=== PATIENT | female | born 1940 | race Caucasian/White ===

== ENCOUNTER 2025-06-10 18:43 | Inpatient (IN) ==
[2025-06-10] MEDS: ALBUTEROL 0.083% NEBU SOLN 3 ML VIAL ONE (19:27)
[2025-06-10 19:54] LABS: Alanine Aminotransferase 7.0 U/L (7-52); Albumin Globulin Ratio 1.0 (0.9-2); Alkaline Phosphatase 107.0 U/L (34-104); Anion Gap 9.0 (3-11); Bilirubin,Total 0.5 mg/dl (0.2-1.0); Blood Urea Nitrogen 29.0 mg/dl (6-23); Calcium 8.9 mg/dl (8.6-10.3); Carbon Dioxide 30.0 mmol/L (21-32); Chloride 105.0 mmol/L (98-107); Creatinine Clr Calc Pharmacy 36.5 ml/min; Globulin 2.9 gm/dl (2.5-4.0); Glucose 117.0 mg/dl (70-99(Fasting)); Potassium 4.3 mmol/L (3.5-5.1); Sodium 144.0 mmol/L (136-145); Total Protein 5.8 gm/dl (6.0-8.3)
[2025-06-10 20:01] LABS: Hematocrit (blood only) 41.5 % (37.0-47.0); Hemoglobin 12.2 g/dl (12.0-16.0); Mean Corpuscular Hemoglobin 29.3 pg (25.0-34.0); Mean Corpuscular Volume 99.8 fL (80.0-100.0); Platelet Count 395 K/uL (130-400); RDW Standard Deviation 57.2 fL (36.4-46.3); Red Blood Count 4.16 M/uL (4.20-5.40); White Blood Count 17.95 K/ul (4.8-10.8)
[2025-06-10 20:01] LABS: Chlamydia pneumoniae PCR Not Detected (NotDetected); Coronavirus 229E PCR Not Detected (NotDetected); Coronavirus CoV-2 (COVID19)PCR Not Detected (NotDetected); Coronavirus HKU1 PCR Not Detected (NotDetected); Coronavirus NL63 PCR Not Detected (NotDetected); Coronavirus OC43PCR Not Detected (NotDetected); Human Metapneumovirus PCR Not Detected (NotDetected); Parainfluenza Virus 1 PCR Not Detected (NotDetected); Parainfluenza Virus 2 PCR Not Detected (NotDetected); Parainfluenza Virus 3 PCR Not Detected (NotDetected); Parainfluenza Virus 4 PCR Not Detected (NotDetected); Respiratory Syncytial VirusPCR Not Detected (NotDetected); Rhinovirus/Enterovirus PCR DETECTED (NotDetected)
--- NOTE | 2025-06-10 20:11 | XRay Report ---
Exam: Chest one view portable. Reason for exam: Pain Previous studies: None FINDINGS: Portable view of the chest shows normal cardiac size. Lungs show hyperaeration and flattening the diaphragms consistent with emphysematous COPD. Otherwise no active infiltrate, collapse or edema is noted. IMPRESSION: Emphysematous COPD. Electronically signed by Deyvi Gann 06-10-2025 8:10 PM
--- NOTE | 2025-06-10 20:22 | Emergency Department Note ---
Impression & Plan Acute respiratory failure with hypoxia, Rhinovirus infection, COPD (chronic obstructive pulmonary disease) ED Provider Note NAME: SALLY MAYERS AGE: 84 SEX: F : 1940 ARRIVES VIA: Ambulance INFORMANT: Patient, ED PROVIDER(S): Phylicia Hutchison MD CHIEF COMPLAINT: Respiratory distress HPI: This is an 84-year-old female present for respiratory distress. Patient been having difficulty breathing all day. She went unresponsive at the nursing facility. She was awake but not very responsive. She responded painful stimuli. Currently she is tachypneic, shallow respirations, does not respond to voice. Patient is a full code, staff at [facility] called who states this ROS: See above HPI for pertinent positives & negatives. A total of 10 systems reviewed and were otherwise negative. PAST MEDICAL HISTORY: See Below PAST SURGICAL HISTORY: See Below FAMILY HISTORY: See Below SOCIAL HISTORY: See Below HOME MEDICATIONS: See Below ALLERGIES: See Below VITALS: See Below PHYSICAL EXAMINATION: General: Thin, frail, cachectic Head: Normocephalic Eyes: Normal inspection, extraocular muscles intact Ear, nose, throat: Normal external exam Neck: Normal range of motion Respiratory: Poor air movement Cardiovascular: Regular rate/rhythm, no murmur GI: Soft Extremities: nontender, moves all extremities Neuro: No focal deficits, awake, alert Skin: Warm, dry, and intact MEDICAL DECISION MAKING: This is a an 84-year-old female seen for respiratory distress. Patient is currently not moving much air. Concern for COPD exacerbation, URI, pneumonia. - Placed patient on BiPAP with albuterol treatment. She despite this but is fairly amenable -Blood work reveals leukocytosis to almost 18. Troponin is elevated at 40 - Patient is positive for rhino/enterovirus. Explained her current respiratory distress. Patient and Solu-Medrol as well. -Patient required admission for COPD extubation secondary to URI. Differential diagnosis: Pneumonia, URI, COPD Independent History obtained from: EMS Diagnostics interpreted by me: ECG: ECG independently interpreted by me with normal sinus rhythm, rate of 88, normal VT, normal QRS, normal QTc, no ST segment elevations consistent with STEMI criteria Cardiac Monitoring: An order was placed for continuous cardiac monitoring. The monitor shows a rate of 88 with sinus rhythm. Critical Care Note: I have personally spent 34 minutes of critical care time in the direct management of this patient. This includes bedside care, interpretation of diagnostic studies, and testing, discussion with consultants, patient, and family members, and other required patient management activities. This 34 minutes is in excess of all separately billable procedures. Past Med/Surg History Problem List (Updated 06/10/25 @ 23:30 by Phylicia Hutchison MD) Sepsis Acute metabolic encephalopathy COPD (chronic obstructive pulmonary disease) (Acute) Rhinovirus infection (Acute) Acute respiratory failure with hypoxia (Acute) Social History Smoking Status: Unknown if ever smoked Preferred Language: Korean Allergies Allergies Allergy/AdvReac Type Severity Reaction Status Date / Time No Known Allergies Allergy Verified 06/10/25 19:14 Home Meds Home Medications Medication Instructions Recorded Confirmed acetaminophen 325 mg tablet 650 mg PO Q4H PRN PAIN/FEVER >101.0 06/10/25 06/10/25 (Tylenol) acetaminophen 325 mg tablet 650 mg PO Q6H 06/10/25 06/10/25 (Tylenol) apixaban 2.5 mg tablet (Eliquis) 2.5 mg PO BID 06/10/25 06/10/25 aspirin 81 mg tablet,delayed 81 mg PO DAILY 06/10/25 06/10/25 release budesonide-formoterol HFA 80 2 puff inhalation BID 06/10/25 06/10/25 mcg-4.5 mcg/actuation aerosol inhaler docusate sodium 100 mg capsule 100 mg PO Q12H PRN Constipation 06/10/25 06/10/25 (Colace) ezetimibe 10 mg tablet (Zetia) 10 mg PO HS 06/10/25 06/10/25 guaifenesin 100 mg/5 mL oral liquid 200 mg PO Q4H PRN Cough 06/10/25 06/10/25 ipratropium 0.5 mg-albuterol 3 mg 3 ml inhalation Q4H PRN Wheezing 06/10/25 06/10/25 (2.5 mg base)/3 mL nebulization soln ipratropium 0.5 mg-albuterol 3 mg 3 ml inhalation TID 06/10/25 06/10/25 (2.5 mg base)/3 mL nebulization soln lisinopril 10 mg tablet 10 mg PO DAILY 06/10/25 06/10/25 metoprolol succinate 25 mg 25 mg PO DAILY 06/10/25 06/10/25 tablet,extended release 24 hr mirtazapine 7.5 mg tablet 7.5 mg PO HS 06/10/25 06/10/25 multivitamin with minerals 1 tab PO DAILY 06/10/25 06/10/25 pantoprazole 40 mg tablet,delayed 40 mg PO DAILYBB 06/10/25 06/10/25 release (Protonix) povidone-iodine 10 % topical swab 1 applic topical TID 06/10/25 06/10/25 (Betadine Swabsticks) sennosides 8.6 mg tablet (senna) 17.2 mg PO HS 06/10/25 06/10/25 thiamine HCl (vitamin B1) 100 mg 100 mg PO DAILY 06/10/25 06/10/25 tablet (Vitamin B-1) Results & Data (ED) Vital Signs Vital Signs - 24 hr 06/10/25 18:50 06/10/25 18:53 06/10/25 18:54 Temperature Temperature Source Pulse Rate 127 H 110 H Pulse Rate [Apical] Pulse Rhythm Regular Respiratory Rate 28 H Respiratory Effort / Characteristics Non-Labored Labored Short of Breath Respiratory Depth Normal Shallow Blood Pressure 161/90 H Blood Pressure [Left Arm] Blood Pressure Mean 113 Blood Pressure Mean [Left Arm] Blood Pressure Position [Left Arm] Pulse Oximetry Oxygen Delivery Method Oxygen Flow Rate Fraction of Inspired Oxygen Sepsis Recent Fever Within 48 Hours No Sepsis New/Unexplained Change in Mental Status No Sepsis Action Taken by Nursing Physician Notified 06/10/25 19:10 06/10/25 19:10 06/10/25 19:27 Temperature Temperature Source Pulse Rate 111 H Pulse Rate [Apical] 115 H Pulse Rhythm Respiratory Rate 22 22 Respiratory Effort / Characteristics Spontaneous Spontaneous Respiratory Depth Blood Pressure Blood Pressure [Left Arm] Blood Pressure Mean Blood Pressure Mean [Left Arm] Blood Pressure Position [Left Arm] Pulse Oximetry 100 Oxygen Delivery Method BiPAP BiPAP Oxygen Flow Rate Fraction of Inspired Oxygen 100 60 Sepsis Recent Fever Within 48 Hours Sepsis New/Unexplained Change in Mental Status Sepsis Action Taken by Nursing 06/10/25 19:30 06/10/25 20:01 06/10/25 20:36 Temperature Temperature Source Pulse Rate 108 H 107 H Pulse Rate [Apical] 90 Pulse Rhythm Respiratory Rate 20 21 26 H Respiratory Effort / Characteristics Respiratory Depth Blood Pressure 125/81 128/74 Blood Pressure [Left Arm] 138/91 Blood Pressure Mean 95 110 Blood Pressure Mean [Left Arm] 106 Blood Pressure Position [Left Arm] Semi-fowlers Pulse Oximetry 98 99 100 Oxygen Delivery Method BiPAP BiPAP Nasal Cannula Oxygen Flow Rate 6 Fraction of Inspired Oxygen Sepsis Recent Fever Within 48 Hours Sepsis New/Unexplained Change in Mental Status Sepsis Action Taken by Nursing 06/10/25 22:03 06/10/25 22:49 Temperature 36.6 C Temperature Source Rectal Pulse Rate 88 Pulse Rate [Apical] 102 H Pulse Rhythm Respiratory Rate 25 H Respiratory Effort / Characteristics Respiratory Depth Blood Pressure Blood Pressure [Left Arm] 120/64 Blood Pressure Mean Blood Pressure Mean [Left Arm] 82 Blood Pressure Position [Left Arm] Semi-fowlers Pulse Oximetry 100 Oxygen Delivery Method Nasal Cannula Oxygen Flow Rate 2.5 Fraction of Inspired Oxygen Sepsis Recent Fever Within 48 Hours Sepsis New/Unexplained Change in Mental Status Sepsis Action Taken by Nursing Laboratory Data 06/10/25 19:20 06/10/25 19:20 Lab Results 06/10/25 06/10/25 06/10/25 Range/Units 19:05 19:20 19:22 WBC 17.95 H (4.8-10.8) K/ul RBC 4.16 L (4.20-5.40) M/uL Hgb 12.2 (12.0-16.0) g/dl POC Hgb (12.0-16.0) g/dl Hct 41.5 (37.0-47.0) % POC Hct (37-47) % MCV 99.8 (80.0-100.0) fL MCH 29.3 (25.0-34.0) pg MCHC 29.4 L (32.0-36.0) g/dL RDW Std Deviation 57.2 H (36.4-46.3) fL RDW Coeff of Manuel 15.4 H (11.5-14.5) % Plt Count 395 (130-400) K/uL MPV 10.2 (9.4-12.4) fL Neutrophils % (Manual) 93 % Lymphocytes % (Manual) 4 % Monocytes % (Manual) 2 % Basophils % (Manual) 1 % Neutrophils # (Manual) 16.69 H (1.40-6.50) K/uL Total Absolute Neuts 16.69 H (1.4-6.5) K/uL Lymphocytes # (Manual) 0.72 L (1.2-3.4) K/uL Total Abs Lymphocytes 0.72 L (1.2-3.4) K/uL Monocytes # (Manual) 0.36 (0.11-0.59) K/uL Basophils # (Manual) 0.18 (0-0.2) K/uL Hypersegmented Neuts 1+ Polychromasia 1+ Acanthocytes (Spur) 1+ Specimen Type Sample Site POC pH (7.35-7.45) POC pCO2 (35-46) mmHg POC pO2 (80-95) mmHg POC HCO3 (19-24) bhumi/L POC Total CO2 (24-31) mmol/L POC Base Excess (-9-1.8) bhumi/L O2 Sat Pulse Oximetry ABG pH (Temp Correct) (7.35-7.45) ABG pCO2 (Temp Corrct (35-46) mmHg POC ABG pO2 at Pt Temp POC ABG O2 Sat (90-95) % Braulio Test O2 Delivery Device POC Sodium (135-144) mmol/L Sodium 144 (136-145) mmol/L POC Potassium (3.3-5.0) mmol/L Potassium 4.3 (3.5-5.1) mmol/L Chloride 105 (98-107) mmol/L Carbon Dioxide 30 (21-32) mmol/L Anion Gap 9 (3-11) BUN 29 H (6-23) mg/dl Creatinine 0.71 (0.6-1.2) mg/dl Est Cr Clr Drug Dosing 36.5 ml/min eGFR 84.31 BUN/Creatinine Ratio 40.8 H (10-20) Glucose 117 H (70-99(Fasting)) mg/dl Lactate (0.4-2.0) mmol/L Calcium 8.9 (8.6-10.3) mg/dl Phosphorus 4.3 (2.5-4.9) mg/dl Magnesium 2.0 (1.7-2.4) mg/dl Total Bilirubin 0.5 (0.2-1.0) mg/dl AST 25 (13-39) U/L ALT 7 (7-52) U/L Alkaline Phosphatase 107 H (34-104) U/L Ammonia (18-72) umol/L Troponin I High Sens 40.6 H (0-14) pg/ml B-Natriuretic Peptide 435 H (0-100) pg/ml Total Protein 5.8 L (6.0-8.3) gm/dl Albumin 2.9 L (3.4-5.0) gm/dl Globulin 2.9 (2.5-4.0) gm/dl Albumin/Globulin Ratio 1.0 (0.9-2) Procalcitonin Cancelled Urine Color Urine Appearance (Clear) Urine pH (4.5-7.5) Ur Specific Belk (1.000-1.030) Urine Protein (Negative) Urine Glucose (UA) (Negative) Urine Ketones (Negative) Urine Blood (Negative) Urine Nitrite (Negative) Urine Bilirubin (Negative) Urine Urobilinogen (Negative) Ur Leukocyte Esterase (Negative) Urine WBC (Auto) (0-5) /hpf Urine RBC (Auto) (0-2) /hpf U Hyaline Cast (Auto) (0-2) /lpf U Epithel Cells (Auto) (0-2) /hpf Urine Bacteria (Auto) (None Seen) Urine Comment Adenovirus (PCR) Not Detected (NotDetected) B. pertussis DNA (PCR) Not Detected (NotDetected) B.parapertussis DNA PCR Not Detected (NotDetected) C. pneumoniae DNA (PCR) Not Detected (NotDetected) Coronavirus OC43 (PCR) Not Detected (NotDetected) Coronavirus HKU1 (PCR) Not Detected (NotDetected) Coronavirus 229E (PCR) Not Detected (NotDetected) SARS-CoV-2 (PCR) Not Detected (NotDetected) Coronavirus NL63 (PCR) Not Detected (NotDetected) Human Metapneumovir PCR Not Detected (NotDetected) Influenza Type A (PCR) Not Detected (NotDetected) Influenza Type B (PCR) Not Detected (NotDetected) M. pneumoniae (PCR) Not Detected (NotDetected) Parainfluenza 1 (PCR) Not Detected (NotDetected) Parainfluenza 2 (PCR) Not Detected (NotDetected) Parainfluenza 3 (PCR) Not Detected (NotDetected) Parainfluenza 4 (PCR) Not Detected (NotDetected) RSV (PCR) Not Detected (NotDetected) Entero/Rhino (PCR) DETECTED A (NotDetected) 06/10/25 06/10/25 06/10/25 Range/Units 21:24 23:13 Unknown WBC (4.8-10.8) K/ul RBC (4.20-5.40) M/uL Hgb (12.0-16.0) g/dl POC Hgb 10.2 L (12.0-16.0) g/dl Hct (37.0-47.0) % POC Hct 30 L (37-47) % MCV (80.0-100.0) fL MCH (25.0-34.0) pg MCHC (32.0-36.0) g/dL RDW Std Deviation (36.4-46.3) fL RDW Coeff of Manuel (11.5-14.5) % Plt Count (130-400) K/uL MPV (9.4-12.4) fL Neutrophils % (Manual) % Lymphocytes % (Manual) % Monocytes % (Manual) % Basophils % (Manual) % Neutrophils # (Manual) (1.40-6.50) K/uL Total Absolute Neuts (1.4-6.5) K/uL Lymphocytes # (Manual) (1.2-3.4) K/uL Total Abs Lymphocytes (1.2-3.4) K/uL Monocytes # (Manual) (0.11-0.59) K/uL Basophils # (Manual) (0-0.2) K/uL Hypersegmented Neuts Polychromasia Acanthocytes (Spur) Specimen Type Arterial Sample Site R Radial POC pH 7.32 L (7.35-7.45) POC pCO2 61 H (35-46) mmHg POC pO2 132 H (80-95) mmHg POC HCO3 31 H (19-24) bhumi/L POC Total CO2 33 H (24-31) mmol/L POC Base Excess 5.0 H (-9-1.8) bhumi/L O2 Sat Pulse Oximetry 100 ABG pH (Temp Correct) 7.347 L (7.35-7.45) ABG pCO2 (Temp Corrct 56 H (35-46) mmHg POC ABG pO2 at Pt Temp 120 POC ABG O2 Sat 99.0 H (90-95) % Braulio Test Pass O2 Delivery Device Cannula POC Sodium 141 (135-144) mmol/L Sodium (136-145) mmol/L POC Potassium 3.7 (3.3-5.0) mmol/L Potassium (3.5-5.1) mmol/L Chloride (98-107) mmol/L Carbon Dioxide (21-32) mmol/L Anion Gap (3-11) BUN (6-23) mg/dl Creatinine (0.6-1.2) mg/dl Est Cr Clr Drug Dosing ml/min eGFR BUN/Creatinine Ratio (10-20) Glucose (70-99(Fasting)) mg/dl Lactate 2.4 H* (0.4-2.0) mmol/L Calcium (8.6-10.3) mg/dl Phosphorus (2.5-4.9) mg/dl Magnesium (1.7-2.4) mg/dl Total Bilirubin (0.2-1.0) mg/dl AST (13-39) U/L ALT (7-52) U/L Alkaline Phosphatase (34-104) U/L Ammonia 26.0 (18-72) umol/L Troponin I High Sens 46.2 H (0-14) pg/ml B-Natriuretic Peptide (0-100) pg/ml Total Protein (6.0-8.3) gm/dl Albumin (3.4-5.0) gm/dl Globulin (2.5-4.0) gm/dl Albumin/Globulin Ratio (0.9-2) Procalcitonin 0.15 Urine Color Dark Yellow Urine Appearance Clear (Clear) Urine pH 5.5 (4.5-7.5) Ur Specific Belk 1.026 (1.000-1.030) Urine Protein Trace H (Negative) Urine Glucose (UA) Negative (Negative) Urine Ketones Trace H (Negative) Urine Blood Negative (Negative) Urine Nitrite Negative (Negative) Urine Bilirubin Negative (Negative) Urine Urobilinogen Negative (Negative) Ur Leukocyte Esterase Trace H (Negative) Urine WBC (Auto) 0-5 (0-5) /hpf Urine RBC (Auto) 0-2 (0-2) /hpf U Hyaline Cast (Auto) 0-2 (0-2) /lpf U Epithel Cells (Auto) 0-2 (0-2) /hpf Urine Bacteria (Auto) None Seen (None Seen) Urine Comment Adenovirus (PCR) (NotDetected) B. pertussis DNA (PCR) (NotDetected) B.parapertussis DNA PCR (NotDetected) C. pneumoniae DNA (PCR) (NotDetected) Coronavirus OC43 (PCR) (NotDetected) Coronavirus HKU1 (PCR) (NotDetected) Coronavirus 229E (PCR) (NotDetected) SARS-CoV-2 (PCR) (NotDetected) Coronavirus NL63 (PCR) (NotDetected) Human Metapneumovir PCR (NotDetected) Influenza Type A (PCR) (NotDetected) Influenza Type B (PCR) (NotDetected) M. pneumoniae (PCR) (NotDetected) Parainfluenza 1 (PCR) (NotDetected) Parainfluenza 2 (PCR) (NotDetected) Parainfluenza 3 (PCR) (NotDetected) Parainfluenza 4 (PCR) (NotDetected) RSV (PCR) (NotDetected) Entero/Rhino (PCR) (NotDetected) Administered Medications Sodium Chloride (Nss) 1,000 mls @ 80 mls/hr IV .[id number] [facility] Stop: 06/11/25 22:29 Last Admin: 06/10/25 22:18 Dose: 80 mls/hr Documented By: JOHN Discontinued Medications Albuterol (Albuterol 0.083% Nebu Soln 3 Ml Vial) Confirm Administered Dose 2.5 mg .ROUTE .STK-MED ONE Stop: 06/10/25 18:57 Last Admin: 06/10/25 19:27 Dose: 2.5 mg Documented By: SÁNCHEZ Droperidol (Droperidol 5 Mg/2 Ml Vial) 0.625 mg IV ONE STA Stop: 06/10/25 21:03 Last Admin: 06/10/25 21:06 Dose: 0.625 mg Documented By: JOHN Piperacillin Sod/Tazobactam Sod (Zosyn) 4.5 gm in 100 mls @ 200 mls/hr IV NOW STA; Protocol Stop: 06/10/25 21:31 Last Infusion: 06/10/25 22:12 Dose: Infused Documented By: Admin: 06/10/25 21:54 Dose: 200 mls/hr Documented By: EMB Doxycycline Hyclate 100 mg/ (Dextrose) 100 mls @ 50 mls/hr IV NOW STA Stop: 06/10/25 23:02 Last Admin: 06/10/25 22:13 Dose: 50 mls/hr Documented By: EMB Sodium Chloride (Nss) 250 mls @ 999 mls/hr IV .Q16M ONE Stop: 06/10/25 21:59 Last Infusion: 06/10/25 22:32 Dose: Infused Documented By: Admin: 06/10/25 22:18 Dose: 999 mls/hr Documented By: EMB Methylprednisolone (Methylprednisolone 125 Mg/2 Ml Vial) 80 mg IV NOW STA Stop: 06/10/25 21:01 Last Admin: 06/10/25 21:50 Dose: 80 mg Documented By: EMB Imaging Data Radiologist's Impression: Chest X-Ray 06/10/25 19:04 Exam: Chest one view portable. Reason for exam: Pain Previous studies: None FINDINGS: Portable view of the chest shows normal cardiac size. Lungs show hyperaeration and flattening the diaphragms consistent with emphysematous COPD. Otherwise no active infiltrate, collapse or edema is noted. IMPRESSION: Emphysematous COPD. Electronically signed by Deyvi Gann 06-10-2025 8:10 PM Discharge Plan Visit Data Chief Complaint: Respiratory Distress Stated Complaint: RESP. DISTRESS, SEMI RESPONSIVE ED Provider: Phylicia Hutchison Discharge Problem: Acute respiratory failure with hypoxia, Rhinovirus infection, COPD (chronic obstructive pulmonary disease) Patient Disposition: Admitted As Inpatient Condition: Serious Forms Stand Alone Forms: My [facility] Prescriptions Prescriptions: No Action sennosides [senna] 8.6 mg Tablet 17.2 mg PO HS acetaminophen [Tylenol] 325 mg Tablet 650 mg PO Q4H MDD 3 GRAMS APAP/24 HOURS PRN (Reason: PAIN/FEVER >101.0) acetaminophen [Tylenol] 325 mg Tablet 650 mg PO Q6H ipratropium-albuterol 0.5 mg-3 mg(2.5 mg base)/3 mL Solution For Nebulization 3 ml INHALATION TID Rx Instructions: STARTED 06/06/25 FOR 5 DAYS ipratropium-albuterol 0.5 mg-3 mg(2.5 mg base)/3 mL Solution For Nebulization 3 ml INHALATION Q4H PRN (Reason: Wheezing) thiamine HCl (vitamin B1) [Vitamin B-1] 100 mg Tablet 100 mg PO DAILY Rx Instructions: TO START 06/09/25, NOT GIVEN PER MED LIST. aspirin 81 mg Tablet,Delayed Release (Dr/Ec) 81 mg PO DAILY guaifenesin [Siltussin SA] 100 mg/5 mL Liquid 200 mg PO Q4H PRN (Reason: Cough) Rx Instructions: STARTED 06/06/25 FOR 10 DAYS pantoprazole [Protonix] 40 mg Tablet,Delayed Release (Dr/Ec) 40 mg PO DAILYBB lisinopril 10 mg Tablet 10 mg PO DAILY Rx Instructions: HOLD FOR SBP <110 povidone-iodine [Betadine Swabsticks] 10 % Swab 1 applic TOPICAL TID Rx Instructions: CLEANSE WOUND ON LEFT KNEE WITH SOAP & WATER, THEN APPLY BETADINE TO WOUND AND AIR DRY docusate sodium [Colace] 100 mg Capsule 100 mg PO Q12H PRN (Reason: Constipation) metoprolol succinate 25 mg Tablet Extended Release 24 Hr 25 mg PO DAILY Rx Instructions: HOLD FOR SBP <110 OR HR <55 multivitamin with minerals Tablet 1 tab PO DAILY ezetimibe [Zetia] 10 mg Tablet 10 mg PO HS mirtazapine 7.5 mg Tablet 7.5 mg PO HS budesonide-formoterol 80-4.5 mcg/actuation Hfa Aerosol Inhaler 2 puff INHALATION BID Eliquis 2.5 mg Tablet 2.5 mg PO BID Referrals Referrals: PCP,NO [Physician] - Discharge Problem: COPD (chronic obstructive pulmonary disease) Qualifiers: COPD type: COPD with acute lower respiratory infection Qualified Code(s): J44.0 - Chronic obstructive pulmonary disease with (acute) lower respiratory infection
[2025-06-10 20:39] LABS: ALC (manual) 0.72 K/uL (1.2-3.4); ANC (manual) 16.69 K/uL (1.4-6.5); Acanthocytes 1+; Hypersegmented Neutrophils 1+; Polychromasia 1+
[2025-06-10] MEDS: DROPERIDOL 5 MG/2 ML VIAL IV STA (21:06)
[2025-06-10 21:12] LABS: Magnesium 2.0 mg/dl (1.7-2.4)
--- NOTE | 2025-06-10 21:37 | History & Physical Report ---
Date of Service June 10, 2025 Assessment & Plan (1) Acute respiratory failure with hypoxia: (2) Rhinovirus infection: (3) COPD (chronic obstructive pulmonary disease): (4) Acute metabolic encephalopathy: (5) Sepsis: Plan: Acute Respiratory failure with hypoxia Secondary to Rhinovirus Infection COPD Exacerbation Lactic acidosis Sepsis secondary to above --CXR: Emphysematous COPD. --BioFire positive for rhinovirus --CT for PE pending --Obtain blood culture --ABG pending Cautious use of IV fluids given history of aortic stenosis, diastolic heart failure Started on broad-spectrum antibiotics IV Zosyn, doxycycline Check nasal MRSA Started on nebs, IV Solu-Medrol Isolation precautions Continue supplemental oxygen to maintain saturation 90-92% BiPAP as needed Trend lactate levels Check procalcitonin level N.p.o. for now, aspiration precautions Pulmonary hygiene Consider pulmonology evaluation if no improvement Acute metabolic encephalopathy In setting of dementia Does not follow commands, mostly nonverbal --CT head pending ABG, ammonia, phosphorus level, urinalysis pending Reorient frequently to minimize delirium Neurochecks Fall precautions PT OT as able Troponin elevation Likely demand ischemia in the setting of respiratory distress Trend troponin, check resting echo Paroxysmal atrial fibrillation Continue metoprolol succinate 25 mg daily On Eliquis for anticoagulation Chronic diastolic heart failure Aortic stenosis Not on diuretics at home Continue metoprolol, lisinopril Check resting echo Monitor volume status while on IV fluids GERD Continue Protonix CKD III Creatinine at baseline Monitor renal function History of recurrent falls Ambulatory dysfunction PT OT, fall precautions Other chronic conditions Severe Protein calorie malnutrition Failure to thrive Hyperlipidemia Hypertension severe dementia with psychotic disturbance Continue home medications as able Reorient frequently, delirium precautions DVT Px: Eliquis CODE STATUS Full code as per my discussion with patient's over the phone Disposition Admit to PCU I spent a total [id number] interpreting workup, discussing with patient's family/ER staff, reviewing old records, coordinating, documenting, and providing care for this patient History of Present Illness Chief Complaint: Respiratory distress Primary Care Provider: Alma Parson PA-C Patient is a 89-year-old female with history of paroxysmal atrial fibrillation on anticoagulation with Eliquis, protein calorie malnutrition, COPD, chronic diastolic heart failure, aortic valve stenosis, GERD, hyperlipidemia, hypertension, severe dementia with psychotic disturbance as per record, failure to thrive, recurrent falls, CKD stage III, thyroid nodule and other medical problems presents from [facility] with history of respiratory distress. Patient currently is alert, awake while in ED but was not able to provide any history or follow commands. Most of the history is obtained from ER staff, old records. Patient was noted to be in respiratory distress at around 5:30pm at care home facility and her oxygen saturations were found to be in 70% and her to be very lethargic and so was sent to ED for further evaluation. Patient responds to painful stimulus but otherwise mostly nonverbal. She was placed on BiPAP while in ED later transitioned to nasal cannula. Tachycardic on monitor, EKG shows sinus tachycardia with PACs and nonspecific ST-T wave changes. No other relevant history could be obtained. Updated patient's over the phone who understands patient's condition and prefers to keep her full code. Allergies Allergy/AdvReac Type Severity Reaction Status Date / Time No Known Allergies Allergy Verified 06/10/25 19:14 Home Medications Medication Instructions Recorded Confirmed Type acetaminophen 325 mg tablet 650 mg PO Q4H PRN PAIN/FEVER >101.0 06/10/25 06/10/25 History (Tylenol) acetaminophen 325 mg tablet 650 mg PO Q6H 06/10/25 06/10/25 History (Tylenol) apixaban 2.5 mg tablet (Eliquis) 2.5 mg PO BID 06/10/25 06/10/25 History aspirin 81 mg tablet,delayed 81 mg PO DAILY 06/10/25 06/10/25 History release budesonide-formoterol HFA 80 2 puff inhalation BID 06/10/25 06/10/25 History mcg-4.5 mcg/actuation aerosol inhaler docusate sodium 100 mg capsule 100 mg PO Q12H PRN Constipation 06/10/25 06/10/25 History (Colace) ezetimibe 10 mg tablet (Zetia) 10 mg PO HS 06/10/25 06/10/25 History guaifenesin 100 mg/5 mL oral liquid 200 mg PO Q4H PRN Cough 06/10/25 06/10/25 History ipratropium 0.5 mg-albuterol 3 mg 3 ml inhalation Q4H PRN Wheezing 06/10/25 06/10/25 History (2.5 mg base)/3 mL nebulization soln ipratropium 0.5 mg-albuterol 3 mg 3 ml inhalation TID 06/10/25 06/10/25 History (2.5 mg base)/3 mL nebulization soln lisinopril 10 mg tablet 10 mg PO DAILY 06/10/25 06/10/25 History metoprolol succinate 25 mg 25 mg PO DAILY 06/10/25 06/10/25 History tablet,extended release 24 hr mirtazapine 7.5 mg tablet 7.5 mg PO HS 06/10/25 06/10/25 History multivitamin with minerals 1 tab PO DAILY 06/10/25 06/10/25 History pantoprazole 40 mg tablet,delayed 40 mg PO DAILYBB 06/10/25 06/10/25 History release (Protonix) povidone-iodine 10 % topical swab 1 applic topical TID 06/10/25 06/10/25 History (Betadine Swabsticks) sennosides 8.6 mg tablet (senna) 17.2 mg PO HS 06/10/25 06/10/25 History thiamine HCl (vitamin B1) 100 mg 100 mg PO DAILY 06/10/25 06/10/25 History tablet (Vitamin B-1) Past Med/Surg History Problem List (Updated 06/10/25 @ 21:45 by Bc Peña MD) Sepsis Acute metabolic encephalopathy COPD (chronic obstructive pulmonary disease) Rhinovirus infection Acute respiratory failure with hypoxia Social History Smoking Status: Unknown if ever smoked Preferred Language: Italian Immunizations: S/P hip hemiarthroplasty Never smoker, no alcohol use Review of Systems Review of Systems: Unobtainable due to cognitive status Physical Exam Physical Exam: Physical Exam: Vitals signs as noted above General Appearance: Thin, frail, ill-appearing, elderly, no apparent distress Head: normocephalic, Atraumatic Eyes: normal inspection, EOMI Neck: supple, Trachea midline Respiratory/Chest: Decreased breath sounds, CTA, No accessory muscle use Cardiovascular: S1, S2, tachycardia, ? murmur Abdomen/GI:Soft, Non tender, Bowel sounds present Extremities/Musculoskeletal:normal inspection, 1+B/L LE edema Neurologic/Psych: Alert, awake, + dementia, grossly moves all extremities, does not follow simple commands. Skin: normal color, warm Results & Data Results & Data Vital Signs (Past 12 Hours) Vital Signs Pulse Pulse Resp BP BP Pulse Ox O2 Del Method 06/10/25 20:36 90 26 H 138/91 100 Nasal Cannula 06/10/25 20:01 107 H 21 128/74 99 BiPAP 06/10/25 19:30 108 H 20 125/81 98 BiPAP 06/10/25 19:27 100 BiPAP 06/10/25 19:10 111 H 22 06/10/25 19:10 115 H 22 BiPAP 06/10/25 18:53 110 H 06/10/25 18:50 127 H 28 H 161/90 H O2 Flow Rate FiO2 06/10/25 20:36 6 06/10/25 20:01 06/10/25 19:30 06/10/25 19:27 06/10/25 19:10 60 06/10/25 19:10 100 06/10/25 18:53 06/10/25 18:50 Laboratory Results Short CBC 06/10/25 Range/Units 19:20 WBC 17.95 H (4.8-10.8) K/ul Hgb 12.2 (12.0-16.0) g/dl Hct 41.5 (37.0-47.0) % Plt Count 395 (130-400) K/uL BMP 06/10/25 19:20 Sodium 144 Potassium 4.3 Chloride 105 Carbon Dioxide 30 BUN 29 H Creatinine 0.71 Glucose 117 H Calcium 8.9 Liver Function 06/10/25 Range/Units 19:20 Total Bilirubin 0.5 (0.2-1.0) mg/dl AST 25 (13-39) U/L ALT 7 (7-52) U/L Alkaline Phosphatase 107 H (34-104) U/L Albumin 2.9 L (3.4-5.0) gm/dl Diagnostic Findings --CXR: Emphysematous COPD. ECG Additional Comments: --EKG: Sinus tachycardia with PACs, nonspecific ST-T wave abnormalities, QTc 454. Code Status & VTE Plan VTE Prophylaxis Plan VTE Prophylaxis will be ordered: Yes
[2025-06-10 21:42] LABS: Appearance Urine Clear (Clear); Bacteria Urine Automated None Seen (None Seen); Cast Urine Automated 0-2 /lpf (0-2); Epithelial Cell Urine Auto 0-2 /hpf (0-2); Glucose Urine UA Negative (Negative); RBC Urine Automated 0-2 /hpf (0-2); WBC Urine Automated 0-5 /hpf (0-5)
[2025-06-10] MEDS: PIPERACILLIN/TAZOBACTAM 4.5 GM/100 ML BAG IV STA (21:54)
[2025-06-10] MEDS: DOXYCYCLINE HYCLATE 100 MG in DEXTROSE 5% MINI-B 100 ML IV STA (22:13)
[2025-06-10] MEDS: SODIUM CHLORIDE 0.9% 1,000 ML IV SCH (22:18)
[2025-06-10] MEDS: SODIUM CHLORIDE 0.9% 250 ML IV ONE (22:18)
[2025-06-10 23:27] LABS: iSTAT Art Bld Gas Base Excess 5.0 meg/L (-9-1.8); iSTAT Art Bld Gas pCO2 Correct 56 mmHg (35-46); iSTAT Art Bld Gas pH Corrected 7.347 (7.35-7.45); iSTAT Arterial Blood Gas pO2 C 120
[2025-06-11] MEDS: SODIUM CHLORIDE 0.9% 250 ML IV ONE (00:08)
[2025-06-11] MEDS ORDERED: ACETAMINOPHEN 325 MG TAB PO PRN (00:20)
[2025-06-11] MEDS ORDERED: LEVALBUTEROL HCL 0.63 MG/3 ML NEB NEB PRN (00:20)
[2025-06-11] MEDS ORDERED: DOCUSATE SODIUM 100 MG CAP PO PRN (00:20)
[2025-06-11] MEDS ORDERED: ONDANSETRON INJ 2 MG/ML 2 ML VIAL IV PRN (00:20)
[2025-06-11] MEDS ORDERED: POLYETHYLENE (MIRALAX) 17 GM PACK PO PRN (00:20)
[2025-06-11] MEDS: EZETIMIBE 10 MG TAB PO SCH (00:37)
[2025-06-11] MEDS: APIXABAN 2.5 MG TAB PO SCH (00:37)
[2025-06-11] MEDS: OPTIRAY 320 125ml IV ONE (01:13)
--- NOTE | 2025-06-11 01:54 | CT Scan Report ---
EXAM: CT head/brain wo con CLINICAL HISTORY: Altered Mental status TECHNIQUE: Multiple axial images are obtained from the skull base to the vertex without contrast. CT scan was performed according to ALARA (as low as reasonably achievable). COMPARISON: None. FINDINGS: There is cerebral atrophy. No evidence of space occupying lesion, hemorrhage, edema, mass effect, midline shift, extra axial collection, or hydrocephalus is noted. Basal cisterns are symmetric and normal in size and configuration. There are scattered periventricular hypodensities as can be seen with chronic microvascular ischemic changes. The neal-white matter differentiation is preserved. Visualized paranasal sinuses and mastoid air cells are well aerated. Orbital contents are within normal limits. Bony structures are intact. IMPRESSION: 1. No evidence of acute intracranial abnormality is demonstrated. 2. Chronic microvascular ischemic changes. 3. Cerebral atrophy. Electronically signed by Giuseppe Watters 06-11-2025 01:54 AM
--- NOTE | 2025-06-11 02:17 | CT Scan Report ---
EXAM: CT angio chest PE protocol CLINICAL HISTORY: PE TECHNIQUE: Contiguous axial images were obtained from the neck base through the upper abdomen following intravenous administration of iodinated contrast material. Angiographic images were processed, 3D MIP images were acquired for interpretation. If IV contrast material had not been administered, the likelihood of detecting abnormalities relevant to the patient's condition would have been substantially decreased. Coronal and sagittal 3-D MIPs were likewise performed and indicated to increase the sensitivity of detectin diffuse clinically relevant pathology. CT scan was performed according to ALARA (as low as reasonably achievable). COMPARISON: None. FINDINGS: Diffuse centrilobular and panlobular emphysema noted in both lungs. Mild aneurysmal dilatation of ascending aorta with maximum diameter measures approx 34 mm. Mild bilateral pleural effusion with basal subsegmental collapse of both lower lobes are seen.- more on left. Adequate contrast bolus without evidence of pulmonary embolism. The central airways are patent. The lungs are clear. No pleural effusion. The heart, aorta, and pulmonary arteries are of normal size and configuration. There are coronary artery and aortic atherosclerotic calcifications. No pericardial effusion is identified. The thyroid shows hypodense nodules in both lobes- advised ultrasound correlation. No mediastinal, hilar, or axillary lymphadenopathy is noted. No suspicious lytic or sclerotic osseous lesions are identified. IMPRESSION: Diffuse centrilobular and panlobular emphysema noted in both lungs. Mild aneurysmal dilatation of ascending aorta with maximum diameter measures approx 34 mm. Mild bilateral pleural effusion with basal subsegmental collapse of both lower lobes are seen.- more on left. No pulmonary embolism. Electronically signed by Giuseppe Watters 06-11-2025 02:16 AM
[2025-06-11] MEDS: PIPERACILLIN/TAZOBACTAM 4.5 GM/100 ML BAG IV SCH (03:01)
[2025-06-11] MEDS: ALBUT/IPRATROP 3MG/0.5MG NEB 3 ML VIAL NEB SCH (07:14)
[2025-06-11] MEDS: ASPIRIN 81 MG ECTAB PO SCH (07:42)
[2025-06-11] MEDS: FLUTICASONE/VILANTEROL 100/25MCG 14 PUFFS/INHALER INH SCH (07:44)
[2025-06-11] MEDS: METOPROLOL SUCC 25MG EXT REL TAB PO SCH (07:45)
[2025-06-11] MEDS: THIAMINE HCL 100 MG TAB PO SCH (07:45)
[2025-06-11] MEDS: DOXYCYCLINE HYCLATE 100 MG in DEXTROSE 5% MINI-B 100 ML IV SCH (08:17)
--- NOTE | 2025-06-11 08:45 | Hospitalist Progress Note ---
Date of Service June 11, 2025 Assessment & Plan (1) Acute respiratory failure with hypoxia: (2) Rhinovirus infection: (3) COPD (chronic obstructive pulmonary disease): (4) Acute metabolic encephalopathy: (5) Sepsis: Plan: Ms. Ward is an 84-year-old female with history of paroxysmal atrial fibrillation on anticoagulation with Eliquis, protein calorie malnutrition, COPD, chronic diastolic heart failure, aortic valve stenosis, GERD, hyperlipidemia, hypertension, severe dementia with psychotic disturbance as per record, failure to thrive, recurrent falls, CKD stage III, thyroid nodule and other medical problems presents from [facility] with history of respiratory distress and admitted for sepsis 2/2 enterovirus Patient is responsive to verbal/physial stimuli. Suspect hypercapnia contributing to encephalopathy iso severe dementia. Patient tolerating bipap trial. #Acute Respiratory failure with hypoxia/hypercapnia #Sepsis secondary to Rhinovirus Infection #COPD Exacerbation #Mild bilateral pleural effusions CXR: Emphysema CTA: Reviewed today, no emboli, mild pleural effusions L >R BioFire positive for rhinovirus ABG consistent with likely chronic retention lactate improved MRSA negative Continue IV Zosyn, doxycycline continue home inhalers start Perforomist and Pulmicort Isolation precautions Continue supplemental oxygen to maintain saturation 90-92% BiPAP as needed N.p.o. for now, aspiration precautions Pulmonary hygiene #Acute metabolic encephalopathy #Severe dementia with prior psychotic disturbance In setting of dementia, infection Does not follow commands, mostly nonverbal CT head with cerebral atrophy ammonia 26, Ua likely with dehydration Reorient frequently to minimize delirium Neurochecks PT/OT when able #Troponin elevation Likely demand ischemia in the setting of respiratory distress troponin down trending at this time continue to monitor on tele #Paroxysmal atrial fibrillation Unable to take po start IV metoprolol q6 hours resume po as able, including eliquis #Chronic diastolic heart failure #moderate Aortic stenosis Not on diuretics at home Continue metoprolol, lisinopril ECHO with EF at 60-65% consider gentle diuresis, however, will discontinue IVF and reassess as pt not taking in po at this time #severe protein calorie malnutrition BMI 16.6 nutrition following, speech consulted will advance diet as able #GERD Continue Protonix #CKD III Creatinine at baseline Monitor renal function #recurrent falls #Ambulatory dysfunction PT OT, fall precautions DVT Px: Eliquis CODE STATUS Full code as per prior hospitalist discussion with Disposition monitor in PCU given increased nursing needs Admission and Anticipated Discharge Date Admission Date: June 10, 2025 Subjective responsive to loud verbal/physical stimuli does not open eyes, makes vocalizations No apparent distress noted however Physical Exam Constitutional: becomes restless when evaluated at bedside, doesn't follow commands, does not open eyes, however, moans Respiratory: no distress, coarse scattered rhonchi, diminished breath sounds however, laying relatively flat Cardiovascular: tachycardic, SHELL Results & Data Results & Data Vital Signs (Past 12 Hours) Vital Signs Temp Pulse Pulse Resp BP BP Pulse Ox 06/11/25 07:33 36.5 C 79 19 90/51 L 100 06/11/25 07:15 88 18 100 06/11/25 03:00 36.4 C L 71 16 120/71 98 06/11/25 00:20 06/11/25 00:20 06/11/25 00:20 36.3 C L 87 20 129/77 99 06/10/25 23:31 113 H 24 128/66 100 06/10/25 22:49 88 06/10/25 22:03 36.6 C 102 H 25 H 120/64 100 Pulse Ox O2 Del Method O2 Del Method O2 Flow Rate O2 Flow Rate 06/11/25 07:33 Nasal Cannula 2 06/11/25 07:15 Nasal Cannula 3 06/11/25 03:00 Nasal Cannula 1 06/11/25 00:20 Nasal Cannula 2 06/11/25 00:20 99 Nasal Cannula 2 06/11/25 00:20 Nasal Cannula 2 06/10/25 23:31 Nasal Cannula 2 06/10/25 22:49 06/10/25 22:03 Nasal Cannula 2.5 Laboratory Results Short CBC 06/10/25 06/11/25 Range/Units 19:20 09:52 WBC 17.95 H 11.86 H (4.8-10.8) K/ul Hgb 12.2 10.7 L (12.0-16.0) g/dl Hct 41.5 36.2 L (37.0-47.0) % Plt Count 395 302 (130-400) K/uL BMP 06/10/25 06/11/25 19:20 09:52 Sodium 144 145 Potassium 4.3 4.3 Chloride 105 107 Carbon Dioxide 30 33 H BUN 29 H 24 H Creatinine 0.71 0.68 Glucose 117 H 167 H Calcium 8.9 8.6 Liver Function 06/10/25 06/11/25 Range/Units 19:20 09:52 Total Bilirubin 0.5 0.5 (0.2-1.0) mg/dl AST 25 16 (13-39) U/L ALT 7 5 L (7-52) U/L Alkaline Phosphatase 107 H 93 (34-104) U/L Albumin 2.9 L 2.6 L (3.4-5.0) gm/dl Urine 06/10/25 Range/Units Unknown Urine Color Dark Yellow Urine Appearance Clear (Clear) Urine pH 5.5 (4.5-7.5) Ur Specific Kellogg 1.026 (1.000-1.030) Urine Protein Trace H (Negative) Urine Glucose (UA) Negative (Negative) Medications Administered Home Medications Medication Instructions Recorded Confirmed Last Taken acetaminophen 325 mg tablet 650 mg PO Q4H PRN PAIN/FEVER >101.0 06/10/25 06/10/25 05/19/25 (Tylenol) acetaminophen 325 mg tablet 650 mg PO Q6H 06/10/25 06/10/25 06/10/25 17:05 (Tylenol) apixaban 2.5 mg tablet (Eliquis) 2.5 mg PO BID 06/10/25 06/10/25 06/10/25 16:55 aspirin 81 mg tablet,delayed 81 mg PO DAILY 06/10/25 06/10/25 06/10/25 10:05 release budesonide-formoterol HFA 80 2 puff inhalation BID 06/10/25 06/10/25 06/10/25 17:05 mcg-4.5 mcg/actuation aerosol inhaler docusate sodium 100 mg capsule 100 mg PO Q12H PRN Constipation 06/10/25 06/10/25 Unknown (Colace) ezetimibe 10 mg tablet (Zetia) 10 mg PO HS 06/10/25 06/10/25 06/09/25 23:05 guaifenesin 100 mg/5 mL oral liquid 200 mg PO Q4H PRN Cough 06/10/25 06/10/25 Unknown ipratropium 0.5 mg-albuterol 3 mg 3 ml inhalation Q4H PRN Wheezing 06/10/25 06/10/25 Unknown (2.5 mg base)/3 mL nebulization soln ipratropium 0.5 mg-albuterol 3 mg 3 ml inhalation TID 06/10/25 06/10/25 06/10/25 16:55 (2.5 mg base)/3 mL nebulization soln lisinopril 10 mg tablet 10 mg PO DAILY 06/10/25 06/10/25 06/10/25 10:05 metoprolol succinate 25 mg 25 mg PO DAILY 06/10/25 06/10/25 06/10/25 10:05 tablet,extended release 24 hr mirtazapine 7.5 mg tablet 7.5 mg PO HS 06/10/25 06/10/25 06/09/25 23:05 multivitamin with minerals 1 tab PO DAILY 06/10/25 06/10/25 06/10/25 10:05 pantoprazole 40 mg tablet,delayed 40 mg PO DAILYBB 06/10/25 06/10/25 06/10/25 06:10 release (Protonix) povidone-iodine 10 % topical swab 1 applic topical TID 06/10/25 06/10/25 06/10/25 10:40 (Betadine Swabsticks) sennosides 8.6 mg tablet (senna) 17.2 mg PO HS 06/10/25 06/10/25 06/09/25 23:05 thiamine HCl (vitamin B1) 100 mg 100 mg PO DAILY 06/10/25 06/10/25 Unknown tablet (Vitamin B-1) Active Medications Generic Name Dose Route Start Last Admin Trade Name [place] PRN Reason Stop Dose Admin Albuterol 3 ml 06/11/25 07:00 06/11/25 10:56 Albut/Ipratrop 3mg/0.5mg Neb 3 Ml Vial NEB 07/11/25 06:59 3 ml QIDR [facility] Administration Protocol Apixaban 2.5 mg 06/11/25 00:20 06/11/25 07:42 Apixaban 2.5 Mg Tab PO 07/11/25 00:19 Not Given BID [facility] Aspirin 81 mg 06/11/25 09:00 06/11/25 07:42 Aspirin 81 Mg Ectab PO 07/11/25 08:59 Not Given DAILY [facility] Ezetimibe 10 mg 06/11/25 00:20 06/11/25 00:37 Ezetimibe 10 Mg Tab PO 07/11/25 00:19 Not Given HS [facility] Fluticasone/Vilanterol 1 puffs 06/11/25 09:00 06/11/25 07:44 Fluticasone/Vilanterol 100/25mcg 14 Puffs/Inhaler INH 07/11/25 08:59 Not Given DAILY [facility] Protocol Doxycycline Hyclate 100 mg/ 100 mls @ 50 mls/hr 06/11/25 09:00 06/11/25 10:42 Dextrose IV 06/13/25 08:59 Infused Q12H [facility] Infusion Piperacillin Sod/Tazobactam Sod 4.5 gm in 100 mls @ 25 mls/hr 06/11/25 04:00 06/11/25 11:30 Zosyn IV 06/13/25 03:59 25 mls/hr Q8H [facility] Administration Protocol Methylprednisolone 40 mg/ 0.64 mls @ 1.5 mls/min 06/11/25 09:00 06/11/25 08:17 Syringe IV 07/11/25 08:59 1.5 mls/min DAILY [facility] Administration Lisinopril 10 mg 06/11/25 09:00 06/11/25 07:44 Lisinopril 10 Mg Tab PO 07/11/25 08:59 Not Given DAILY [facility] Metoprolol Succinate 25 mg 06/11/25 09:00 06/11/25 07:45 Metoprolol Succ 25mg Ext Rel Tab PO 07/11/25 08:59 Not Given DAILY [facility] Metoprolol Tartrate 5 mg 06/11/25 12:00 06/11/25 11:31 Metoprolol Tartrate 1 Mg/Ml Vial IV 07/11/25 11:59 5 mg Q6 [facility] Administration Pantoprazole Sodium 40 mg 06/11/25 06:30 06/11/25 05:04 Pantoprazole 40 Mg Tab PO 07/11/25 06:29 Not Given DAILYBB [facility] Thiamine HCl 100 mg 06/11/25 09:00 06/11/25 07:45 Thiamine Hcl 100 Mg Tab PO 07/11/25 08:59 Not Given DAILY [facility] (3) COPD (chronic obstructive pulmonary disease) COPD type: COPD with acute lower respiratory infection Qualified Code(s): J44.0 - Chronic obstructive pulmonary disease with (acute) lower respiratory infection
[2025-06-11] MEDS: METOPROLOL TARTRATE 1 MG/ML VIAL IV STA (08:56)
[2025-06-11 10:06] LABS: Base Excess VBG 5.3 mEq/L; HCO3 VBG 34 mmol/L; Oxygen Saturation VBG < 60.0 %; PCO2 VBG 68 mmHg (38-50); PO2 VBG 27 mmHg; pH VBG 7.30 (7.36-7.41)
[2025-06-11 10:08] LABS: Hematocrit (blood only) 36.2 % (37.0-47.0); Hemoglobin 10.7 g/dl (12.0-16.0); Mean Corpuscular Hemoglobin 29.3 pg (25.0-34.0); Mean Corpuscular Volume 99.2 fL (80.0-100.0); Platelet Count 302 K/uL (130-400); RDW Standard Deviation 55.9 fL (36.4-46.3); Red Blood Count 3.65 M/uL (4.20-5.40); White Blood Count 11.86 K/ul (4.8-10.8)
[2025-06-11 10:28] LABS: Alanine Aminotransferase 5.0 U/L (7-52); Albumin Globulin Ratio 1.0 (0.9-2); Alkaline Phosphatase 93.0 U/L (34-104); Anion Gap 5.0 (3-11); Bilirubin,Total 0.5 mg/dl (0.2-1.0); Blood Urea Nitrogen 24.0 mg/dl (6-23); Calcium 8.6 mg/dl (8.6-10.3); Carbon Dioxide 33.0 mmol/L (21-32); Chloride 107.0 mmol/L (98-107); Creatinine Clr Calc Pharmacy 38.1 ml/min; Globulin 2.7 gm/dl (2.5-4.0); Glucose 167.0 mg/dl (70-99(Fasting)); Magnesium 1.8 mg/dl (1.7-2.4); Potassium 4.3 mmol/L (3.5-5.1); Sodium 145.0 mmol/L (136-145); Total Protein 5.3 gm/dl (6.0-8.3)
[2025-06-11 10:30] LABS: Immature Granulocytes # (auto) 0.09 K/uL (0.01-0.20); Immature Granulocytes % (auto) 0.8 %
[2025-06-11] MEDS: METOPROLOL TARTRATE 1 MG/ML VIAL IV SCH (11:31)
[2025-06-11 12:44] LABS: Hemoglobin A1C 4.8 % (4.5-5.6)
[2025-06-11 14:56] LABS: Base Excess VBG 6.9 mEq/L; HCO3 VBG 34 mmol/L; Oxygen Saturation VBG < 60.0 %; PCO2 VBG 59 mmHg (38-50); PO2 VBG 20 mmHg; pH VBG 7.37 (7.36-7.41)
[2025-06-11] MEDS: BUDESONIDE 0.25 MG/2 ML VIAL (PULMICORT) NEB SCH (20:23)
[2025-06-11] MEDS: FORMOTEROL 20 MCG/2 ML VIAL NEB SCH (20:24)
[2025-06-11] MEDS ORDERED: Nursing to Pharmacy Communication SCH (20:30)
[2025-06-12 06:46] LABS: Hematocrit (blood only) 32.8 % (37.0-47.0); Hemoglobin 10.0 g/dl (12.0-16.0); Mean Corpuscular Hemoglobin 29.7 pg (25.0-34.0); Mean Corpuscular Volume 97.3 fL (80.0-100.0); Platelet Count 295 K/uL (130-400); RDW Standard Deviation 53.2 fL (36.4-46.3); Red Blood Count 3.37 M/uL (4.20-5.40); White Blood Count 12.91 K/ul (4.8-10.8)
[2025-06-12 07:06] LABS: Anion Gap 5.0 (3-11); Blood Urea Nitrogen 27.0 mg/dl (6-23); Calcium 8.5 mg/dl (8.6-10.3); Carbon Dioxide 32.0 mmol/L (21-32); Chloride 107.0 mmol/L (98-107); Creatinine Clr Calc Pharmacy 34.2 ml/min; Glucose 100.0 mg/dl (70-99(Fasting)); Magnesium 1.9 mg/dl (1.7-2.4); Potassium 3.8 mmol/L (3.5-5.1); Sodium 144.0 mmol/L (136-145)
[2025-06-12 08:04] LABS: Base Excess VBG 5.6 mEq/L; HCO3 VBG 33 mmol/L; Oxygen Saturation VBG < 60.0 %; PCO2 VBG 62 mmHg (38-50); PO2 VBG 31 mmHg; pH VBG 7.34 (7.36-7.41)
[2025-06-12 08:22] LABS: Immature Granulocytes # (auto) 0.06 K/uL (0.01-0.20); Immature Granulocytes % (auto) 0.4 %
--- NOTE | 2025-06-12 08:51 | Palliative Care Consultation ---
Date of Consultation June 12, 2025 Assessment & Plan (1) Shortness of breath: (2) Weakness generalized: (3) Counseling regarding goals of care: Met with pt at bedside, no visitors present. Pt is oriented to person only with Hx of advanced dementia and lacks decisional capacity. ACP discussion with spous e will be necessary for determining the appropriate course of treatment. Phone call made to pt's spouse Anil Ward, spent more than 30 minutes discussing pt values and GOC. Anil shared that he and Siomara have anjali for over 60y and had two sons, one is and the other lives with him. He shared awareness that the pt has advanced dementia, and states that she needed more care than could be offered at home so she has been reiding at [facility] for a few months. He shared that she was forgetful and impulsive at home, but was still eating and bathing with some assistance from him. He shared concern that she has gotten progressively more withdrawn and has lost wieght fernandes to decreasing PO intake at [facility]. He shared that he is not aware of her having any medical problems and that he "has never had to deal with anything like this, where her mind is slipping away". Spent a substantial amount of time discussing the progressively debilitating nature of dementia. Explained that dementia is incurable and irreversible, and can include progressive/worsening memory loss, confusion, language difficulties/lack of comprehension skills/loss of verbal skills eventually, mood changes, impaired judgment, trouble with motor skills/coordination/balance issues, visual and spatial problems, hallucinations, and personality changes. The rate of progression in mixed dementia can vary widely from person to person. Factors such as the types of dementia involved, overall health, and genetics can influence the speed of progression. Some individuals experience a more gradual decline, while others may progress more rapidly through the stages. We discussed and differentiated dementia from delirium and helped family understand that they can co-exist. I reviewed Dementia is a terminal illness. Aggressive medical treatment for patients with advanced dementia is often inappropriate for medical reasons, has a low rate of success, and can have negative outcomes that hasten functional decline and . Helped them understand differences between dementia and delirium. Discussed typical progression of dementia and how it may be staged. Stage 1: Normal Functioning: In the early stage, individuals show no signs of dementia, and their cognitive function is normal Stage 2: Very Mild Cognitive Decline: Minor memory lapses and forgetfulness may occur but are often attributed to normal aging Stage 3: Mild Cognitive Decline: Early signs of dementia become more noticeable, such as memory problems and difficulty finding words Stage 4: Moderate Cognitive Decline: Memory loss becomes more pronounced, and individuals may struggle with tasks like managing finances and planning Stage 5: Moderately Severe Cognitive Decline: Daily functioning becomes challenging, and individuals may require assistance with tasks like dressing and bathing Stage 6: Severe Cognitive Decline: In this stage, individuals need substantial help with daily activities, and communication becomes increasingly difficult Stage 7: Very Severe Cognitive Decline: In the final stage, individuals may lose the ability to communicate, walk, and perform basic tasks. They require [id number] care. Older adults with dementia frequently receive acute care in their last year of life although Hospice care was more common for home/[facility] residents. Discussed hospice as a valuable option for terminal dementia patients who desire to have a natural . Discussed code status and helped Anli understand that CPR is only done after a person has and involves uncomfortable and invasive procedures that, if successful. have high risk of multiple complications including but not limited to rib fractures, pneumo/hemothorax, GRAZYNA, ventilator dependence, anoxic brain injury, and ad terminal makeup operator/permanent cognitive and functional deficits. Anil questioned why we would put his through all of that if her dementia is only going to get worse and requested DNR/DNI at this time. He questioned if hospice is appropriate for her and if that could happen at [facility]. Discussed hospice benefit: an interdisciplinary program offered by nurses, nurses aides, social workers, chaplains and a medical billing instructor for patients with a terminal condition and a life expectancy of less than 6 months. This is covered by Medicare at 100%/no out of pocket expense to patient and all meds/supplies needed by patient for the reason they are on hospice are paid for/covered by hospice. The goal is assure quality of life of the patient in their home setting (home, halfway, inpatient hospice setting) by providing symptoms management, psychosocial and spiritual support. However, they cannot offer 24 hours care and if the family is unable to provide that care, they will have to consider personal care with out of pocket cost vs. halfway placement. We discussed the goals of hospice as a patient service and the goals of care; we discussed EOL trajectories and transitions bret the emotional impact of realizing mortality as a concrete reality from prior abstract considerations. Reassured him that no matter where they are along this trajectory, they are not alone - their medical team will remain by their side through their journey. Discussed the pros/cons of accepting help when especially weakened and distressed by pain-which would also help provide relief/decrease caregiver burden/strain. Ultimately Anil shared that given her advanced dementia, his would want her healthcare team to focus on quality of time over qualtity and requests discharge back to [facility] with hospice care. He did not express a preference for hospice agency. Attending team (Dr Jaime), BSRN, and CM made aware. (4) Palliative care by specialist: Palliative care will continue to follow for ongoing EOL pt care and family support. Plan as above History of Present Illness Reason for Consultation: goals of care Requesting Physician: Celine Jaime MD Attending Physician: Celine Jaime MD History of Present Illness Patient is a 89-year-old female with history of paroxysmal atrial fibrillation on anticoagulation with Eliquis, protein calorie malnutrition, COPD, chronic diastolic heart failure, aortic valve stenosis, GERD, hyperlipidemia, hypertension, severe dementia with psychotic disturbance as per record, failure to thrive, recurrent falls, CKD stage III, thyroid nodule and other medical problems presents from [facility] with history of respiratory distress. Allergies Allergy/AdvReac Type Severity Reaction Status Date / Time No Known Allergies Allergy Verified 06/10/25 19:14 Home Medications Medication Instructions Recorded Confirmed Type acetaminophen 325 mg tablet 650 mg PO Q4H PRN PAIN/FEVER >101.0 06/10/25 06/10/25 History (Tylenol) acetaminophen 325 mg tablet 650 mg PO Q6H 06/10/25 06/10/25 History (Tylenol) apixaban 2.5 mg tablet (Eliquis) 2.5 mg PO BID 06/10/25 06/10/25 History aspirin 81 mg tablet,delayed 81 mg PO DAILY 06/10/25 06/10/25 History release budesonide-formoterol HFA 80 2 puff inhalation BID 06/10/25 06/10/25 History mcg-4.5 mcg/actuation aerosol inhaler docusate sodium 100 mg capsule 100 mg PO Q12H PRN Constipation 06/10/25 06/10/25 History (Colace) ezetimibe 10 mg tablet (Zetia) 10 mg PO HS 06/10/25 06/10/25 History guaifenesin 100 mg/5 mL oral liquid 200 mg PO Q4H PRN Cough 06/10/25 06/10/25 History ipratropium 0.5 mg-albuterol 3 mg 3 ml inhalation Q4H PRN Wheezing 06/10/25 06/10/25 History (2.5 mg base)/3 mL nebulization soln ipratropium 0.5 mg-albuterol 3 mg 3 ml inhalation TID 06/10/25 06/10/25 History (2.5 mg base)/3 mL nebulization soln lisinopril 10 mg tablet 10 mg PO DAILY 06/10/25 06/10/25 History metoprolol succinate 25 mg 25 mg PO DAILY 06/10/25 06/10/25 History tablet,extended release 24 hr mirtazapine 7.5 mg tablet 7.5 mg PO HS 06/10/25 06/10/25 History multivitamin with minerals 1 tab PO DAILY 06/10/25 06/10/25 History pantoprazole 40 mg tablet,delayed 40 mg PO DAILYBB 06/10/25 06/10/25 History release (Protonix) povidone-iodine 10 % topical swab 1 applic topical TID 06/10/25 06/10/25 History (Betadine Swabsticks) sennosides 8.6 mg tablet (senna) 17.2 mg PO HS 06/10/25 06/10/25 History thiamine HCl (vitamin B1) 100 mg 100 mg PO DAILY 06/10/25 06/10/25 History tablet (Vitamin B-1) Patient History Social History Smoking Status: Unknown if ever smoked Hx Alcohol Use: No Hx Substance Use: No Preferred Language: Malay Communication Ability: Impaired Current Living Situation: [facility] Current Living Situation Comment: [facility] Assistive Devices: Denture - Upper Review of Systems Review of Systems: Unobtainable due to cognitive status Physical Exam Constitutional: + ill appearing, + thin, + frail appeari ng and comfortable; not in distress Eyes: PERRL, conjunctivae normal, anicteric sclerae Neck: trachea midline, no thyromegaly Respiratory: normal respiratory effort, lungs clear to auscultation Cardiovascular: RRR, no murmur, no edema Gastrointestinal (Abdomen): normal bowel sounds, soft, nontender, no hepatosplenomegaly Skin: no rashes, warm and dry Neurologic: moves all extremities, awake and + confused Psychiatric: Orientation: alert, oriented to person and + guarded; + uncooperative Results & Data Vital Signs (Past 12 Hours) Vital Signs Temp Pulse Pulse Resp BP BP Pulse Ox 06/12/25 08:04 84 19 165/92 H 100 06/12/25 07:24 77 18 100 06/12/25 06:16 97 H 153/90 H 06/12/25 05:48 76 128/73 06/12/25 02:40 78 18 128/52 L 100 06/12/25 01:14 67 06/12/25 00:20 06/12/25 00:07 76 133/62 06/11/25 22:52 36.5 C 115 H 18 130/72 100 Pulse Ox O2 Del Method O2 Del Method O2 Flow Rate O2 Flow Rate 06/12/25 08:04 Nasal Cannula 3 06/12/25 07:24 Nasal Cannula 4 06/12/25 06:16 06/12/25 05:48 06/12/25 02:40 Nasal Cannula 4 06/12/25 01:14 06/12/25 00:20 100 Nasal Cannula 5 06/12/25 00:07 06/11/25 22:52 Nasal Cannula 5 Laboratory Results Abnormal lab results 06/11/25 06/11/25 06/11/25 Range/Units 09:52 14:50 20:29 WBC 11.86 H (4.8-10.8) K/ul RBC 3.65 L (4.20-5.40) M/uL Hgb 10.7 L (12.0-16.0) g/dl Hct 36.2 L (37.0-47.0) % MCHC 29.6 L (32.0-36.0) g/dL RDW Std Deviation 55.9 H (36.4-46.3) fL RDW Coeff of Manuel 15.2 H (11.5-14.5) % Neut # (Auto) 11.46 H (1.40-6.50) K/uL Lymph # (Auto) 0.24 L (1.20-3.40) K/uL [place] # (Auto) 0.06 L (0.11-0.59) K/uL VBG pH 7.30 L (7.36-7.41) VBG pCO2 68 H 59 H (38-50) mmHg Carbon Dioxide 33 H (21-32) mmol/L BUN 24 H (6-23) mg/dl BUN/Creatinine Ratio 35.3 H (10-20) Glucose 167 H (70-99(Fasting)) mg/dl Calcium (8.6-10.3) mg/dl ALT 5 L (7-52) U/L Troponin I High Sens 22.6 H D (0-14) pg/ml B-Natriuretic Peptide 264 H (0-100) pg/ml Total Protein 5.3 L (6.0-8.3) gm/dl Albumin 2.6 L (3.4-5.0) gm/dl 06/12/25 06/12/25 Range/Units 06:11 07:59 WBC 12.91 H (4.8-10.8) K/ul RBC 3.37 L (4.20-5.40) M/uL Hgb 10.0 L (12.0-16.0) g/dl Hct 32.8 L (37.0-47.0) % MCHC 30.5 L (32.0-36.0) g/dL RDW Std Deviation 53.2 H (36.4-46.3) fL RDW Coeff of Manuel 15.0 H (11.5-14.5) % Neut # (Auto) 12.05 H (1.40-6.50) K/uL Lymph # (Auto) 0.61 L (1.20-3.40) K/uL [place] # (Auto) 0.67 H (0.11-0.59) K/uL VBG pH 7.34 L (7.36-7.41) VBG pCO2 62 H (38-50) mmHg Carbon Dioxide (21-32) mmol/L BUN 27 H (6-23) mg/dl BUN/Creatinine Ratio 39.1 H (10-20) Glucose 100 H (70-99(Fasting)) mg/dl Calcium 8.5 L (8.6-10.3) mg/dl ALT (7-52) U/L Troponin I High Sens (0-14) pg/ml B-Natriuretic Peptide (0-100) pg/ml Total Protein (6.0-8.3) gm/dl Albumin (3.4-5.0) gm/dl Diagnostic Findings Chest X-Ray 06/10/25 19:04 Exam: Chest one view portable. Reason for exam: Pain Previous studies: None FINDINGS: Portable view of the chest shows normal cardiac size. Lungs show hyperaeration and flattening the diaphragms consistent with emphysematous COPD. Otherwise no active infiltrate, collapse or edema is noted. IMPRESSION: Emphysematous COPD. Electronically signed by Deyvi Gann 06-10-2025 8:10 PM Chest CTA 06/11/25 00:20 EXAM: CT angio chest PE protocol CLINICAL HISTORY: PE TECHNIQUE: Contiguous axial images were obtained from the neck base through the upper abdomen following intravenous administration of iodinated contrast material. Angiographic images were processed, 3D MIP images were acquired for interpretation. If IV contrast material had not been administered, the likelihood of detecting abnormalities relevant to the patient's condition would have been substantially decreased. Coronal and sagittal 3-D MIPs were likewise performed and indicated to increase the sensitivity of detectin diffuse clinically relevant pathology. CT scan was performed according to ALARA (as low as reasonably achievable). COMPARISON: None. FINDINGS: Diffuse centrilobular and panlobular emphysema noted in both lungs. Mild aneurysmal dilatation of ascending aorta with maximum diameter measures approx 34 mm. Mild bilateral pleural effusion with basal subsegmental collapse of both lower lobes are seen.- more on left. Adequate contrast bolus without evidence of pulmonary embolism. The central airways are patent. The lungs are clear. No pleural effusion. The heart, aorta, and pulmonary arteries are of normal size and configuration. There are coronary artery and aortic atherosclerotic calcifications. No pericardial effusion is identified. The thyroid shows hypodense nodules in both lobes- advised ultrasound correlation. No mediastinal, hilar, or axillary lymphadenopathy is noted. No suspicious lytic or sclerotic osseous lesions are identified. IMPRESSION: Diffuse centrilobular and panlobular emphysema noted in both lungs. Mild aneurysmal dilatation of ascending aorta with maximum diameter measures approx 34 mm. Mild bilateral pleural effusion with basal subsegmental collapse of both lower lobes are seen.- more on left. No pulmonary embolism. Electronically signed by Giuseppe Watters 06-11-2025 02:[address] 06/11/25 00:20 EXAM: CT head/brain wo con CLINICAL HISTORY: Altered Mental status TECHNIQUE: Multiple axial images are obtained from the skull base to the vertex without contrast. CT scan was performed according to ALARA (as low as reasonably achievable). COMPARISON: None. FINDINGS: There is cerebral atrophy. No evidence of space occupying lesion, hemorrhage, edema, mass effect, midline shift, extra axial collection, or hydrocephalus is noted. Basal cisterns are symmetric and normal in size and configuration. There are scattered periventricular hypodensities as can be seen with chronic microvascular ischemic changes. The neal-white matter differentiation is preserved. Visualized paranasal sinuses and mastoid air cells are well aerated. Orbital contents are within normal limits. Bony structures are intact. IMPRESSION: 1. No evidence of acute intracranial abnormality is demonstrated. 2. Chronic microvascular ischemic changes. 3. Cerebral atrophy. Electronically signed by Giuseppe Watters 06-11-2025 01:54 AM Medications Administered Current Inpatient Medications Acetaminophen (Acetaminophen 325 Mg Tab) 650 mg PO Q4H PRN PRN Reason: Pain or Fever Stop: 07/11/25 00:19 Albuterol (Albut/Ipratrop 3mg/0.5mg Neb 3 Ml Vial) 3 ml NEB QIDR RAMILA; Protocol Stop: 07/11/25 06:59 Last Admin: 06/11/25 10:56 Dose: 3 ml Apixaban (Apixaban 2.5 Mg Tab) 2.5 mg PO BID RAMILA Stop: 07/11/25 00:19 Last Admin: 06/12/25 08:38 Dose: 2.5 mg Aspirin (Aspirin 81 Mg Ectab) 81 mg PO DAILY [facility]ILA Stop: 07/11/25 08:59 Last Admin: 06/12/25 08:38 Dose: 81 mg Budesonide (Budesonide 0.25 Mg/2 Ml Vial (Pulmicort)) 0.25 mg NEB BIDR RAMILA Stop: 07/11/25 18:59 Last Admin: 06/12/25 07:23 Dose: 0.25 mg Docusate Sodium (Docusate Sodium 100 Mg Cap) 100 mg PO Q12H PRN PRN Reason: Constipation Stop: 07/11/25 00:19 Ezetimibe (Ezetimibe 10 Mg Tab) 10 mg PO HS RAMILA Stop: 07/11/25 00:19 Last Admin: 06/11/25 20:30 Dose: Not Given Fluticasone/Vilanterol (Fluticasone/Vilanterol 100/25mcg 14 Puffs/Inhaler) 1 puffs INH DAILY [facility]; Protocol Stop: 07/11/25 08:59 Last Admin: 06/12/25 08:39 Dose: 1 puffs Formoterol Fumarate (Formoterol 20 Mcg/2 Ml Vial) 20 mcg NEB BIDR RAMILA Stop: 07/11/25 18:59 Last Admin: 06/12/25 07:23 Dose: 20 mcg Guaifenesin/Dextromethorphan (Guaifenesin/Dextrom Syrup 100mg/10mg 5ml Udc) 5 ml PO Q6H PRN PRN Reason: Cough Stop: 07/11/25 00:19 Doxycycline Hyclate 100 mg/ (Dextrose) 100 mls @ 50 mls/hr IV Q12H [facility] Stop: 06/13/25 08:59 Last Infusion: 06/12/25 02:09 Dose: Infused Piperacillin Sod/Tazobactam Sod (Zosyn) 4.5 gm in 100 mls @ 25 mls/hr IV Q8H [facility]; Protocol Stop: 06/13/25 03:59 Last Infusion: 06/12/25 07:44 Dose: Infused Methylprednisolone 40 mg/ (Syringe) 0.64 mls @ 1.5 mls/min IV DAILY [facility] Stop: 07/11/25 08:59 Last Admin: 06/12/25 08:37 Dose: 1.5 mls/min Levalbuterol HCl (Levalbuterol Hcl 0.63 Mg/3 Ml Neb) 0.63 mg NEB Q6H PRN; Protocol PRN Reason: Shortness Of Breath Or Wheezing Stop: 07/11/25 00:19 Lisinopril (Lisinopril 10 Mg Tab) 10 mg PO DAILY [facility] Stop: 07/11/25 08:59 Last Admin: 06/12/25 08:38 Dose: 10 mg Metoprolol Succinate (Metoprolol Succ 25mg Ext Rel Tab) 25 mg PO DAILY [facility] Stop: 07/11/25 08:59 Last Admin: 06/12/25 08:38 Dose: 25 mg Metoprolol Tartrate (Metoprolol Tartrate 1 Mg/Ml Vial) 5 mg IV Q6 [facility] Stop: 07/11/25 11:59 Last Admin: 06/12/25 05:48 Dose: 5 mg Ondansetron HCl (Ondansetron Inj 2 Mg/Ml 2 Ml Vial) 4 mg IV Q6H PRN PRN Reason: Nausea Stop: 07/11/25 00:19 Pantoprazole Sodium (Pantoprazole 40 Mg Tab) 40 mg PO DAILYBB [facility] Stop: 07/11/25 06:29 Last Admin: 06/12/25 06:08 Dose: Not Given Polyethylene Glycol (Polyethylene (Miralax) 17 Gm Pack) 17 gm PO DAILY PRN PRN Reason: Constipation Stop: 07/11/25 00:19 Thiamine HCl (Thiamine Hcl 100 Mg Tab) 100 mg PO DAILY [facility] Stop: 07/11/25 08:59 Last Admin: 06/12/25 08:38 Dose: 100 mg PG Care Time/CCT Total # of Minutes Spent Total Time Spent with Patient: Total time spent is greater than 50% in coordination of care (as documented) at patient's floor/unit and/or counseling patient: Advanced Care Planning 65403 Advanced Care Planning 30 [place] [address] IN/OBS CONSULT LVL 3,45M Patient Type New History Expanded Problem Focused Exam Expanded Problem Focused Medical Decision Making Moderate Complexity Diagnoses Shortness of breath R06.02 Weakness generalized R53.1 Counseling regarding goals of care Z71.89 Palliative care by specialist Z51.5 Additional Codes Advanced Care Planning - 26237 Advanced Care Planning 30 Min: 86666 Advanced Care Planning 30 Min ([id number])
--- NOTE | 2025-06-12 13:27 | Hospitalist Progress Note ---
Date of Service June 12, 2025 Assessment & Plan (1) Acute respiratory failure with hypoxia: (2) Rhinovirus infection: (3) COPD (chronic obstructive pulmonary disease): (4) Acute metabolic encephalopathy: (5) Sepsis: Plan: Ms. Ward is an 84-year-old female with history of paroxysmal atrial fibrillation on anticoagulation with Eliquis, protein calorie malnutrition, COPD, chronic diastolic heart failure, aortic valve stenosis, GERD, hyperlipidemia, hypertension, severe dementia with psychotic disturbance as per record, failure to thrive, recurrent falls, CKD stage III, thyroid nodule and other medical problems presents from [facility] with history of respiratory distress and admitted for sepsis 2/2 enterovirus On 06/11 Patient is responsive to verbal/physial stimuli. Suspect hypercapnia contributing to encephalopathy iso severe dementia. Patient tolerating bipap trial and much more alert thereafter. Spoke to at length who verbalizes understanding of progressive nature of dementia and agreed to palliative consult On 06/12, patient awake and oriented to self. Able to pass swallow and eating soft foods without issue. Seen in bedside chair during lunch. No distress. Palliative discussion with revealed openness to hospice consult. Engaged with case management for hospice referral #Acute Respiratory failure with hypoxia/hypercapnia #Sepsis secondary to Rhinovirus Infection #COPD Exacerbation #Mild bilateral pleural effusions CXR: Emphysema CTA: Reviewed today, no emboli, mild pleural effusions L >R BioFire positive for rhinovirus ABG consistent with likely chronic retention lactate improved MRSA negative Transition IV solumedrol to po prednisone Deescalate to po cefidinir and doxycycline continue home inhalers levalbuterol prn discontinue Perforomist and Pulmicort Isolation precautions Continue supplemental oxygen to maintain saturation 90-92% BiPAP as needed Pulmonary hygiene #Acute metabolic encephalopathy Improving #Severe dementia with prior psychotic disturbance In setting of dementia, infection Does not follow commands, mostly nonverbal CT head with cerebral atrophy ammonia 26, Ua likely with dehydration Reorient frequently to minimize delirium Neurochecks PT/OT ordered #Troponin elevation Likely demand ischemia in the setting of respiratory distress troponin down trending at this time continue to monitor on tele #Paroxysmal atrial fibrillation resume po as able, including eliquis #Chronic diastolic heart failure #moderate Aortic stenosis Not on diuretics at home Continue metoprolol, lisinopril ECHO with EF at 60-65% held further fluids, encourage po #severe protein calorie malnutrition BMI 16.6 nutrition following, speech consulted will advance diet as able #GERD Continue Protonix #CKD III Creatinine at baseline Monitor renal function #recurrent falls #Ambulatory dysfunction PT OT, fall precautions DVT Px: Eliquis CODE STATUS Full code as per prior hospitalist discussion with Disposition monitor in PCU given increased nursing needs Admission and Anticipated Discharge Date Admission Date: June 10, [address] more alert and interactive today working with speech and following commands from nursing denies any chest pain, nausea, or other concerns Oriented to self only, but pleasant Physical Exam Constitutional: thin, cachectic, pleasant, AOx1 Respiratory: few scattered rhonchi Cardiovascular: RRR, no murmur, no edema Gastrointestinal (Abdomen): normal bowel sounds, soft, nontender, no hepatosplenomegaly Results & Data Results & Data Vital Signs (Past 12 Hours) Vital Signs Temp Pulse Pulse Resp BP BP Pulse Ox 06/12/25 11:51 36.6 C 68 20 123/63 100 06/12/25 09:48 06/12/25 08:04 84 19 165/92 H 100 06/12/25 07:24 77 18 100 06/12/25 06:16 97 H 153/90 H 06/12/25 05:48 76 128/73 06/12/25 02:40 78 18 128/52 L 100 O2 Del Method O2 Flow Rate 06/12/25 11:51 Nasal Cannula 3 06/12/25 09:48 Nasal Cannula 3 06/12/25 08:04 Nasal Cannula 3 06/12/25 07:24 Nasal Cannula 4 06/12/25 06:16 06/12/25 05:48 06/12/25 02:40 Nasal Cannula 4 Laboratory Results Short CBC 06/12/25 Range/Units 06:11 WBC 12.91 H (4.8-10.8) K/ul Hgb 10.0 L (12.0-16.0) g/dl Hct 32.8 L (37.0-47.0) % Plt Count 295 (130-400) K/uL BMP 06/12/25 06:11 Sodium 144 Potassium 3.8 Chloride 107 Carbon Dioxide 32 BUN 27 H Creatinine 0.69 Glucose 100 H Calcium 8.5 L Medications Administered Home Medications Medication Instructions Recorded Confirmed Last Taken acetaminophen 325 mg tablet 650 mg PO Q4H PRN PAIN/FEVER >101.0 06/10/25 06/10/25 05/19/25 (Tylenol) acetaminophen 325 mg tablet 650 mg PO Q6H 06/10/25 06/10/25 06/10/25 17:05 (Tylenol) apixaban 2.5 mg tablet (Eliquis) 2.5 mg PO BID 06/10/25 06/10/25 06/10/25 16:55 aspirin 81 mg tablet,delayed 81 mg PO DAILY 06/10/25 06/10/25 06/10/25 10:05 release budesonide-formoterol HFA 80 2 puff inhalation BID 06/10/25 06/10/25 06/10/25 17:05 mcg-4.5 mcg/actuation aerosol inhaler docusate sodium 100 mg capsule 100 mg PO Q12H PRN Constipation 06/10/25 06/10/25 Unknown (Colace) ezetimibe 10 mg tablet (Zetia) 10 mg PO HS 06/10/25 06/10/25 06/09/25 23:05 guaifenesin 100 mg/5 mL oral liquid 200 mg PO Q4H PRN Cough 06/10/25 06/10/25 Unknown ipratropium 0.5 mg-albuterol 3 mg 3 ml inhalation Q4H PRN Wheezing 06/10/25 06/10/25 Unknown (2.5 mg base)/3 mL nebulization soln ipratropium 0.5 mg-albuterol 3 mg 3 ml inhalation TID 06/10/25 06/10/25 06/10/25 16:55 (2.5 mg base)/3 mL nebulization soln lisinopril 10 mg tablet 10 mg PO DAILY 06/10/25 06/10/25 06/10/25 10:05 metoprolol succinate 25 mg 25 mg PO DAILY 06/10/25 06/10/25 06/10/25 10:05 tablet,extended release 24 hr mirtazapine 7.5 mg tablet 7.5 mg PO HS 06/10/25 06/10/25 06/09/25 23:05 multivitamin with minerals 1 tab PO DAILY 06/10/25 06/10/25 06/10/25 10:05 pantoprazole 40 mg tablet,delayed 40 mg PO DAILYBB 06/10/25 06/10/25 06/10/25 06:10 release (Protonix) povidone-iodine 10 % topical swab 1 applic topical TID 06/10/25 06/10/25 06/10/25 10:40 (Betadine Swabsticks) sennosides 8.6 mg tablet (senna) 17.2 mg PO HS 06/10/25 06/10/25 06/09/25 23:05 thiamine HCl (vitamin B1) 100 mg 100 mg PO DAILY 06/10/25 06/10/25 Unknown tablet (Vitamin B-1) Active Medications Generic Name Dose Route Start Last Admin Trade Name Freq PRN Reason Stop Dose Admin Albuterol 3 ml 06/11/25 07:00 06/11/25 10:56 Albut/Ipratrop 3mg/0.5mg Neb 3 Ml Vial NEB 07/11/25 06:59 3 ml QIDR RAMILA Administration Protocol Apixaban 2.5 mg 06/11/25 00:20 06/12/25 08:38 Apixaban 2.5 Mg Tab PO 07/11/25 00:19 2.5 mg BID RAMILA Administration Aspirin 81 mg 06/11/25 09:00 06/12/25 08:38 Aspirin 81 Mg Ectab PO 07/11/25 08:59 81 mg DAILY RAMILA Administration Budesonide 0.25 mg 06/11/25 19:00 06/12/25 07:23 Budesonide 0.25 Mg/2 Ml Vial (Pulmicort) NEB 07/11/25 18:59 0.25 mg BIDR RAMILA Administration Ezetimibe 10 mg 06/11/25 00:20 06/11/25 20:30 Ezetimibe 10 Mg Tab PO 07/11/25 00:19 Not Given HS RAMILA Fluticasone/Vilanterol 1 puffs 06/11/25 09:00 06/12/25 08:39 Fluticasone/Vilanterol 100/25mcg 14 Puffs/Inhaler INH 07/11/25 08:59 1 puffs DAILY RAMILA Administration Protocol Formoterol Fumarate 20 mcg 06/11/25 19:00 06/12/25 07:23 Formoterol 20 Mcg/2 Ml Vial NEB 07/11/25 18:59 20 mcg BIDR RAMILA Administration Doxycycline Hyclate 100 mg/ 100 mls @ 50 mls/hr 06/11/25 09:00 06/12/25 12:08 Dextrose IV 06/13/25 08:59 Infused Q12H RAMILA Infusion Piperacillin Sod/Tazobactam Sod 4.5 gm in 100 mls @ 25 mls/hr 06/11/25 04:00 06/12/25 11:41 Zosyn IV 06/13/25 03:59 25 mls/hr Q8H RAMILA Administration Protocol Methylprednisolone 40 mg/ 0.64 mls @ 1.5 mls/min 06/11/25 09:00 06/12/25 08:37 Syringe IV 07/11/25 08:59 1.5 mls/min DAILY RAMILA Administration Lisinopril 10 mg 06/11/25 09:00 06/12/25 08:38 Lisinopril 10 Mg Tab PO 07/11/25 08:59 10 mg DAILY RAMILA Administration Metoprolol Succinate 25 mg 06/11/25 09:00 06/12/25 08:38 Metoprolol Succ 25mg Ext Rel Tab PO 07/11/25 08:59 25 mg DAILY RAMILA Administration Pantoprazole Sodium 40 mg 06/11/25 06:30 06/12/25 06:08 Pantoprazole 40 Mg Tab PO 07/11/25 06:29 Not Given DAILYBB RAMILA Thiamine HCl 100 mg 06/11/25 09:00 06/12/25 08:38 Thiamine Hcl 100 Mg Tab PO 07/11/25 08:59 100 mg DAILY RAMILA Administration (3) COPD (chronic obstructive pulmonary disease) COPD type: COPD with acute lower respiratory infection Qualified Code(s): J44.0 - Chronic obstructive pulmonary disease with (acute) lower respiratory infection
[2025-06-12] MEDS: CEFDINIR 300 MG CAP PO SCH (13:54)
[2025-06-12] MEDS: DOXYCYCLINE HYCLATE 100 MG CAP PO SCH (20:35)
[2025-06-13 07:45] LABS: Hematocrit (blood only) 34.2 % (37.0-47.0); Hemoglobin 10.6 g/dl (12.0-16.0); Mean Corpuscular Hemoglobin 29.2 pg (25.0-34.0); Mean Corpuscular Volume 94.2 fL (80.0-100.0); Platelet Count 324 K/uL (130-400); RDW Standard Deviation 51.7 fL (36.4-46.3); Red Blood Count 3.63 M/uL (4.20-5.40); White Blood Count 14.70 K/ul (4.8-10.8)
[2025-06-13 07:57] LABS: Anion Gap 6.0 (3-11); Calcium 8.6 mg/dl (8.6-10.3); Carbon Dioxide 31.0 mmol/L (21-32); Chloride 106.0 mmol/L (98-107); Magnesium 1.7 mg/dl (1.7-2.4); Potassium 3.7 mmol/L (3.5-5.1); Sodium 143.0 mmol/L (136-145)
[2025-06-13 08:07] LABS: Blood Urea Nitrogen 23.0 mg/dl (6-23); Creatinine Clr Calc Pharmacy 46.3 ml/min; Glucose 88.0 mg/dl (70-99(Fasting))
[2025-06-13] MEDS: predniSONE 20 MG TAB PO SCH (09:26)
--- NOTE | 2025-06-13 11:06 | Discharge Summary ---
Discharge Summary Date of Service June 13, 2025 Principal Dx & Hospital Course #1 = Principal Diagnosis (1) Acute respiratory failure with hypoxia: (2) Rhinovirus infection: (3) COPD (chronic obstructive pulmonary disease): (4) Acute metabolic encephalopathy: (5) Sepsis: Ms. Ward is an 84-year-old female with history of paroxysmal atrial fibrillation on anticoagulation with Eliquis, protein calorie malnutrition, COPD, chronic diastolic heart failure, aortic valve stenosis, GERD, hyperlipidemia, hypertension, severe dementia with psychotic disturbance as per record, failure to thrive, recurrent falls, CKD stage III, thyroid nodule and other medical problems presents from [facility] with history of respiratory distress and admitted for sepsis 2/2 enterovirus On 06/11 Patient is responsive to verbal/physial stimuli. Suspect hypercapnia contributing to encephalopathy iso severe dementia. Patient tolerating bipap trial and much more alert thereafter. Spoke to at length who verbalizes understanding of progressive nature of dementia and agreed to palliative consult On 06/12, patient awake and oriented to self. Able to pass swallow and eating soft foods without issue. Seen in bedside chair during lunch. No distress. Palliative discussion with revealed openness to hospice consult. Engaged with case management for hospice referral For DC to hospice today. vitals stable. will contiue abx for a 5 day course. continue prednisone for 5 days. #Acute Respiratory failure with hypoxia/hypercapnia #Sepsis secondary to Rhinovirus Infection #COPD Exacerbation #Mild bilateral pleural effusions CXR: Emphysema CTA: Reviewed today, no emboli, mild pleural effusions L >R BioFire positive for rhinovirus ABG consistent with likely chronic retention lactate improved MRSA negative Transition IV solumedrol to po prednisone Deescalate to po cefidinir and doxycycline continue home inhalers levalbuterol prn discontinue Perforomist and Pulmicort Isolation precautions Continue supplemental oxygen to maintain saturation 90-92% BiPAP as needed Pulmonary hygiene #Acute metabolic encephalopathy Improving #Severe dementia with prior psychotic disturbance In setting of dementia, infection Does not follow commands, mostly nonverbal CT head with cerebral atrophy ammonia 26, Ua likely with dehydration Reorient frequently to minimize delirium Neurochecks PT/OT ordered #Troponin elevation Likely demand ischemia in the setting of respiratory distress troponin down trending at this time continue to monitor on tele #Paroxysmal atrial fibrillation resume po as able, including eliquis #Chronic diastolic heart failure #moderate Aortic stenosis Not on diuretics at home Continue metoprolol, lisinopril ECHO with EF at 60-65% held further fluids, encourage po #severe protein calorie malnutrition BMI 16.6 nutrition following, speech consulted will advance diet as able #GERD Continue Protonix #CKD III Creatinine at baseline Monitor renal function #recurrent falls #Ambulatory dysfunction PT OT, fall precautions DVT Px: Eliquis Disposition monitor in PCU given increased nursing needs Notes For Next Care Provider Medication Changes From Visit cefdinir and doxy Prednisone Lisinopril dose increased Admission HPI Per Admitting Provider Patient is a 89-year-old female with history of paroxysmal atrial fibrillation on anticoagulation with Eliquis, protein calorie malnutrition, COPD, chronic diastolic heart failure, aortic valve stenosis, GERD, hyperlipidemia, hypertension, severe dementia with psychotic disturbance as per record, failure to thrive, recurrent falls, CKD stage III, thyroid nodule and other medical problems presents from [facility] with history of respiratory distress. Patient currently is alert, awake while in ED but was not able to provide any history or follow commands. Most of the history is obtained from ER staff, old records. Patient was noted to be in respiratory distress at around 5:30pm at skilled nursing facility and her oxygen saturations were found to be in 70% and her to be very lethargic and so was sent to ED for further evaluation. Patient responds to painful stimulus but otherwise mostly nonverbal. She was placed on BiPAP while in ED later transitioned to nasal cannula. Tachycardic on monitor, EKG shows sinus tachycardia with PACs and nonspecific ST-T wave changes. No other relevant history could be obtained. Updated patient's over the phone who understands patient's condition and prefers to keep her full code. Discharge Exam Vitals and labs reviewed General:elderly, chronically ill appearing in NAD HEENT: EOMI, PERRLA Neck: Supple Cardiac: RRR no rubs gallops or murmurs Lungs: CTA no rhonchi wheezing or rales Abd: S NT ND BS positive MSK: Full ROM. No obvious deformities Ext: No Edema cyanosis Skin: Warm, Dry Psych: calm Updated Medication List Medication Instructions Recorded Confirmed Type acetaminophen 325 mg tablet 650 mg PO Q4H PRN PAIN/FEVER >101.0 06/10/25 06/10/25 History (Tylenol) acetaminophen 325 mg tablet 650 mg PO Q6H 06/10/25 06/10/25 History (Tylenol) apixaban 2.5 mg tablet (Eliquis) 2.5 mg PO BID 06/10/25 06/10/25 History aspirin 81 mg tablet,delayed 81 mg PO DAILY 06/10/25 06/10/25 History release budesonide-formoterol HFA 80 2 puff inhalation BID 06/10/25 06/10/25 History mcg-4.5 mcg/actuation aerosol inhaler docusate sodium 100 mg capsule 100 mg PO Q12H PRN Constipation 06/10/25 06/10/25 History (Colace) ezetimibe 10 mg tablet (Zetia) 10 mg PO HS 06/10/25 06/10/25 History guaifenesin 100 mg/5 mL oral liquid 200 mg PO Q4H PRN Cough 06/10/25 06/10/25 History ipratropium 0.5 mg-albuterol 3 mg 3 ml inhalation Q4H PRN Wheezing 06/10/25 06/10/25 History (2.5 mg base)/3 mL nebulization soln ipratropium 0.5 mg-albuterol 3 mg 3 ml inhalation TID 06/10/25 06/10/25 History (2.5 mg base)/3 mL nebulization soln lisinopril 10 mg tablet 10 mg PO DAILY 06/10/25 06/10/25 History metoprolol succinate 25 mg 25 mg PO DAILY 06/10/25 06/10/25 History tablet,extended release 24 hr mirtazapine 7.5 mg tablet 7.5 mg PO HS 06/10/25 06/10/25 History multivitamin with minerals 1 tab PO DAILY 06/10/25 06/10/25 History pantoprazole 40 mg tablet,delayed 40 mg PO DAILYBB 06/10/25 06/10/25 History release (Protonix) povidone-iodine 10 % topical swab 1 applic topical TID 06/10/25 06/10/25 History (Betadine Swabsticks) sennosides 8.6 mg tablet (senna) 17.2 mg PO HS 06/10/25 06/10/25 History thiamine HCl (vitamin B1) 100 mg 100 mg PO DAILY 06/10/25 06/10/25 History tablet (Vitamin B-1) cefdinir 300 mg capsule 300 mg PO BID 2 days #4 caps 06/13/25 Rx doxycycline hyclate 100 mg capsule 100 mg PO BID 2 days #4 caps 06/13/25 Rx lisinopril 20 mg tablet 20 mg PO DAILY 30 days #30 tabs 06/13/25 Rx prednisone 20 mg tablet 20 mg PO DAILY 5 days #5 tabs 06/13/25 Rx Hospital Stay Data Consultations 06/10/25 21:02 ED Decision to Admit Stat 06/11/25 15:04 Consult Palliative Care Routine Diagnostic Imagining Performed 06/11/25 00:20 CT angio chest PE protocol Urgent CT head/brain wo con Urgent Pending Results Patient Have Any Pending Studies at Discharge: No Discharge Instructions Given to Patient (Per Discharging Provider) Your hospice team will provide for you upon discharge. Total Time Total Time Spent Total Time Spent (In Minutes): 38
[2025-06-13 12:02] VITALS: BP 157/106; TEMP 95.4; O2SAT 89
[2025-06-13 15:19] VITALS: PULSE 81
[2025-06-13 15:34] VITALS: RESP 20
--- NOTE | 2025-06-14 16:21 | Electrocardiogram Report ---
Test Reason : Blood Pressure : */* mmHG Vent. Rate : 98 BPM Atrial Rate : 98 BPM P-R Int : 256 ms QRS Dur : 86 ms QT Int : 360 ms P-R-T Axes : 88 60 74 degrees QTcB Int : 460 ms Sinus rhythm with 1st degree A-V block Premature atrial complexes Abnormal ECG When compared with ECG of 10-Jun-2025 21:43, (unconfirmed) No significant change Confirmed by Tomas Abdul ([id number]) on 06/14/2025 4:20:50 PM Referred By: REFERRED SELF Confirmed By: Tomas Abdul
--- NOTE | 2025-06-15 14:59 | Electrocardiogram Report ---
Test Reason : Blood Pressure : */* mmHG Vent. Rate : 102 BPM Atrial Rate : 102 BPM P-R Int : 178 ms QRS Dur : 76 ms QT Int : 310 ms P-R-T Axes : 83 65 49 degrees QTcB Int : 404 ms Poor data quality, interpretation may be adversely affected Atrial fibrillation Abnormal ECG No previous ECGs available Confirmed by Tomas Abdul ([id number]) on 06/15/2025 2:59:24 PM Referred By: REFERRED SELF Confirmed By: Tomas Abdul
--- NOTE | 2025-06-15 15:04 | Electrocardiogram Report ---
Test Reason : Blood Pressure : */* mmHG Vent. Rate : 88 BPM Atrial Rate : 88 BPM P-R Int : 180 ms QRS Dur : 86 ms QT Int : 376 ms P-R-T Axes : 87 62 78 degrees QTcB Int : 454 ms Sinus rhythm with Premature atrial complexes Nonspecific T wave abnormality Abnormal ECG When compared with ECG of 10-Jun-2025 18:59, (unconfirmed) No significant change Confirmed by Tomas Abdul ([id number]) on 06/15/2025 3:04:24 PM Referred By: REFERRED SELF Confirmed By: Tomas Abdul
== END 2025-06-13 16:10 | disposition hospice, inpatient (51) | DRG 871 ==
LOC: ED 18:43 → 2E 21:02 → SUATTDRO 21:02 → 2E 23:31